=== PATIENT | male | born 1995 | race Caucasian/White ===

== ENCOUNTER 2019-04-05 07:14 | Emergency (ER) | payer SELFPAY ==
[2019-04-05] MEDS ORDERED: Bicillin LA 1.2 MILLION UNITS/2 ML SYRINGE ONE (07:42)
[2019-04-05] MEDS ORDERED: Ketorolac Tromethamine 60 MG/2 ML VIAL ONE (07:42)
[2019-04-05] MEDS ORDERED: Dexamethasone 4 mg/ml Vial ONE (07:48)
== END 2019-04-05 07:56 | disposition home or self-care (01) ==
LOC: BURERS 07:14
DX: J02.0 Streptococcal pharyngitis (principal); F32.9 Major depressive disorder, single episode, unspecified; F17.210 Nicotine dependence, cigarettes, uncomplicated; Z79.899 Other long term (current) drug therapy
CPT/HCPCS: 96372; 99282; J0561; J1100; J1885